=== PATIENT | female | born 1970 | race Caucasian/White ===

== ENCOUNTER 2020-11-25 14:48 | Outpatient (CLI) | payer BC, SELFPAY ==
--- NOTE | ~2020-11-25 | XR_ITS ---
EXAMINATION: XR chest 2V EXAM DATE: 11/25/2020 15:02 INDICATION: R05 - Cough,COVID 4 Wks Ago . TECHNIQUE: Frontal and lateral projections of the chest obtained and reviewed. There is no prior nicholas dy for comparison. FINDINGS: The lungs are clear. There are no pleural effusions. The cardiomediastinal silhouette is within normal limits. There is no pneumothorax suspected. The bones and soft tissues are unremarkab le. IMPRESSION: Normal chest x-ray exam. Reviewed, dictated and finalized at location B. IMPRESSION: Normal chest x-ray exam.
== END 2020-11-25 14:49 | disposition home or self-care (01) ==
LOC: ANHIMG 14:52
PROVIDERS: PCP Family Medicine; Visit Provider Family Medicine
DX: R05 Cough (principal); B94.8 Sequelae of other specified infectious and parasitic diseases
CPT/HCPCS: 71046

== ENCOUNTER → 2024-06-05 16:45 | Outpatient (CLI) | payer OTHER, SELFPAY ==
--- NOTE | ~2024-06-05 | XR_ITS ---
AP and oblique views of the bilateral ribs, and PA and lateral chest radiographs Clinical History: Pain Findings: No rib fracture is seen. Osseous alignment is anatomic. Lungs are clear, without focal cons olidation or pleural effusion. Cardiomediastinal contour is within normal limits. Probable 7 mm right renal stone. Impression: No rib fracture is seen. Clear lungs. Probable 7 mm right renal stone. Reviewed, dictated and finalized at location . Impression: No rib fracture is seen. Clear lungs. Probable 7 mm right renal stone.
--- OUTSIDE RECORDS SUMMARY | 2024-06-05 16:49 | XMS_ITS | Referral Summary ---
Author Organization [facility] Address [address] [place] [address] Care Team Providers Care Dietetic Technician Name Role Phone Jose Liriano MD Primary Care Provider [phone] Allergies Active Allergy Reactions Criticality Noted Date Comments Sulfamethoxazole-Trimethoprim Itching Low 2023 Nitrofurantoin Itching Low 04/04/2023 Penicillins Rash Medium Reaction: Rash, , Thimerosal Itching Low Reaction: itching, Medications cyanocobalamin (Vitamin B-12) 1,000 mcg tabletIndicatio ns:Prevention of Vitamin B12 Deficiency Take 5 tablets (5,000 mcg total) by mouth daily Active cholecalciferol (VITAMIN D-3) 5,000 unit capsule Take 1 capsule (5,000 Units total) by mouth daily Active Active Problems Problem Noted Date Diagnosed Date Screening for colon cancer 09/11/2019 Overview (09/11/2019): Added automatically from request for surgery [id number] Enlarged uterus 09/11/2019 Thyroid nodule 10/24/2018 Skin benign neoplasm 05/04/2016 Keratosis, senilis 05/04/2016 Skin neoplasm 05/04/2016 Social History Tobacco Use Types Packs/Day Years Used Date Smoking Tobacco: Never Smokeless Tobacco: Never Tobacco Cessation:Counseling Given: Not Answered Alcohol Use Standard Drinks/Week Comments Not Currently 0 (1 standard drink = 0.6 oz pur e alcohol) rare Humiliation, Afraid, Rape, and Kick questionnair e Answer Date Recorded Within the last year, have y ou been afraid of your partner or ex-partner? No 09/11/2019 Within the last year, have y ou been humiliated or emotionally abused in other ways by your partner or ex-partner? No Within the last year, have y ou been kicked, hit, slapped, or otherwise physically hurt by your partner or ex-partner? No 09/11/2019 Within the last year, have y ou been raped or forced to have any kind of sexual activity by your partner or ex-partner? No 09/11/2019 Social Connection and Isolat ion Panel [NHANES] Answer Date Recorded In a typical week, how many times do you talk on the phone with family, friends, or neighbors? More than three times a week 09/11/2019 How often do you get togethe r with friends or relatives? Never 09/11/2019 How often do you attend chur or restorationism services? Never 09/11/2019 Do you belong to any clubs o r organizations such as sabianism groups, unions, fraternal or athletic groups, or school groups? No 09/11/2019 How often do you attend meet ings of the clubs or organizations you belong to? Never 09/11/2019 Are you , , di vorced, , never , or living with a partner? 09/11/2019 AUDIT-C Answer Date Recorded Q1: How often do you have a drink containing alc ohol? Never 09/11/2019 Average Number of Drinks Not on file 020 Frequency of Binge Drinking Not on file 10/2019 Overall Financial Resource Strain (CARDIA) Answe r Date Recorded How hard is it for you to pa y for the very basics like food, housing, medical care, and heating? Not hard at all 09/11/2019 [facility] of Occupat ional Health - Occupational Stress Questionnaire Answer Date Recorded Do you feel stress - tense, restless, nervous, or anxious, or unable to sleep at night because your mind is troubled all the time - these days? Not at all 09/11/2019 Exercise Vital Sign Answer Date Recorde d On average, how many days pe r week do you engage in moderate to strenuous exercise (like a brisk walk)? 0 days Minutes of Exercise per Session Not on file 09/11/2019 Hunger Vital Sign Answer Date Recorded Within the past 12 months, y ou worried that your food would run out before you got the money to buy more. Never true 09/11/19 20 Within the past 12 months, t he food you bought just didn't last and you didn't have money to get more. Never true 09/11/2019 PRAPARE - Transportation Answer Date Re corded In the past 12 months, has l ack of transportation kept you from medical appointments or from getting medications? No 10/2019 In the past 12 months, has l ack of transportation kept you from meetings, work, or from getting things needed for daily living? No 09/11/2019 Personal Safety Answer Date Recorded Have you ever been in or are you currently in a harmful physical or emotional relationship or is someone making you feel afraid or unsafe? Denies 04/04/2023 Comments No Sex and Gender Information Value Date Recorded Sex Assigned at Not on file Legal Sex Female 2:53 AM JOIST SETTER Gender Identity Not on file Sexual Orientation Straight 09/09/2019 1: 23 PM CDT Last Filed Vital Signs Vital Sign Reading Time Taken Comments Blood Pressure 122/74 04/04/2023 12:00 PM JOIST SETTER Pulse 66 04/04/2023 12:00 PM JOIST SETTER Temperature 36.5 C (97.7 F) 04/04/2023 9:26 AM JOIST SETTER Respiratory Rate 18 04/04/2023 11:00 AM JOIST SETTER Oxygen Saturation 96% 04/04/2023 12:00 PM JOIST SETTER Inhaled Oxygen Concentration - - Weight 80.5 kg (177 lb 6.4 oz) 10/02/2023 1:33 P M CDT Height 171.5 cm (5' 7.5 ) 01/04/2021 4:10 PM CDT Body Mass Index 27.37 01/04/2021 4:10 PM CDT Plan of Treatment Not on file Procedures Procedure Name Priority Date/Time Associated Diagnosis Comments DIAGNOSTIC MAMMOGRAM BILATERAL W LIZETTE Schedule Routine, Read Routine (OP Routine) 01/29/2021 11:38 AM JOIST SETTER Lump or mass in breast GENITAL FLUID PAP SMEAR, THIN PREP AND HPV Routine 01/13/2016 6:00 PM JOIST SETTER from Last 3 Months or Most Recently Relevant to Health Maintenance Results * DIAGNOSTIC MAMMOGRAM BILATERAL W LIZETTE (01/29/2021 11:38 AM JOIST SETTER) Anatomical Region Laterality Modality Breast Bilateral Mammography 01/29/2021 12:2 6 PM JOIST SETTER Impressions 01/29/2021 12:26 PM JOIST SETTER BI-RADS Category 2, benign. Recommendation Annual screening mammography. Electronically signed by: Licha Shah M.D. Narrative 01/29/2021 12:26 PM JOIST SETTER Examination: Bilateral digital diagnostic mammogram . Order Date: 01/29/2021 11:30 AM History: Routine screening, patient physician felt lump at upper outer quadrant of the right breast, family history of breast cancer to sister Comparison:09/11/2019, 06/25/2018, 12/18/2017 from [facility] Technique Craniocaudal ,mediolateral oblique and mediolateral views of both breasts were obtained utilizing full field 2 D and digital breast tomosynthesis[DBT] images were obtained. CAD was utilized. Breast parenchymal composition The breasts are heterogeneously dense which may obscure small masses. Findings There is no suspicious dominant mass, clustered microcalcification or architectural distortion. There is no change since previous examination. This examination has been subjected to R2/CAD analysis. Limited ultrasound of the upper outer quadrant of the right breast Real-time examination of the right breast is performed from 9:00 to 12:00. There is dense fibroglandular breast parenchyma without any evidence of solid or a cystic mass suggestive follow-up yearly mammogram. Palpable abnormality based on clinical findings. us Helen Yancey MD IMG MAMMO PROCEDURES Final Result * Genital fluid pap smear, thin prep and HPV (01/13/2016 6:00 PM JOIST SETTER) Clinical information SEE NOTE CDR HISTORICAL RESULTS Comment:H/O LEEP LMP SEE NOTE CDR HISTORICAL RESULTS Comment:11/05/15 Previous Pap SEE NOTE CDR HISTORICAL RESULTS Comment:INFORMATION NOT PROV IDED Previous biopsy SEE NOTE CDR HISTORICAL RESULTS Comment:INFORMATION NOT PROV IDED Referral specimen source SEE NOTE CDR HISTORICAL RESULTS Comment:Information not prov ided Statement of adequacy SEE NOTE CDR HISTORICAL RESULTS Comment: Satisfactory for evaluation. Endocervical/transformation zone component present. Referral specimen, interp SEE NOTE CDR HISTORICAL RESULTS Comment:Negative for intraep ithelial lesion or malignancy. Variable comment SEE NOTE CDR HISTORICAL RESULTS Comment: This Pap test has been evaluated with computer assisted technology. Human papillomavirus RNA, High Risk E6/E7 Not Detected Not Detected CDR HISTORICAL RESULTS Comment: This test was performed using the APTIMA HPV Assay ([employer] This assay detects E6/E7 viral messenger RNA (mRNA) from 14 high-risk HPV types (16,18,31,33,35,39,45,51,52,56,58,59,66,68). Genital 01/13/2016 6:00 PM JOIST SETTER Narrative CDR HISTORICAL RESULTS - 01/20/2016 3:00 AM JOIST SETTER Test performed at [facility] [address] [address] Director: JABIER PHILIP MD us Historical Provider LAB CYTOLOGY ORDERABLES F inal Result CDR HISTORICAL RESULTS from Last 3 Months or Most Recently Relevant to Health Maintenance Insurance [facility] Care Teams Dietetic Technician Relationship Specialty Start Date End Date Jose Liriano MD [address] [address] PCP - General 06/03/16
--- OUTSIDE RECORDS SUMMARY | 2024-06-05 16:49 | XMS_ITS | Encounter Summary ---
Author Organization [facility] Address [address] [place] [address] Phone Care Team Providers Care Instrumental Musician Name Role Phone Jose Liriano MD Primary Care Provider [phone] Encounter Details Date Type Department Care Team (Late st Contact Info) Description 06/21/2017 Orders Only [facility] ProviderViridiana MD [address] [place] [address] Social History Tobacco Use Types Packs/Day Years Used Date Smoking Tobacco: Never Smokeless Tobacco: Never Alcohol Use Standard Drinks/Week Comments Yes 0 (1 standard drink = 0.6 oz pur e alcohol) Comments No Sex and Gender Information Value Date Recorded Sex Assigned at Not on file Legal Sex Female 2:53 AM ECONOMICS FACULTY MEMBER Gender Identity Not on file Sexual Orientation Straight 09/09/2019 1: 23 PM CDT documented as of this encounter Plan of Treatment Not on file documented as of this encounter Procedures Procedure Name Priority Date/Time Associated Diagnosis Comments CYTOLOGY 06/21/2017 12:00 AM CDT documented in this encounter Results * CYTOLOGY (06/21/2017 12:00 AM CDT) Narrative 06/21/2017 12:00 AM CDT Ordered by an unspecified provider. Historical Provider LAB CYTOLOGY ORDERABLES F inal Result documented in this encounter Visit Diagnoses Not on filedocumented in this encounter Care Teams Instrumental Musician Relationship Specialty Start Date End Date Jose Liriano MD [address] [address] PCP - General 06/03/16 documented as of this encounter
--- OUTSIDE RECORDS SUMMARY | 2024-06-05 16:49 | XMS_ITS | Clinical Summary ---
Author Organization [facility] Address [address] [place] [address] Care Team Providers Care Day Porter Name Role Phone Jose Liriano MD Primary Care Provider [phone] Allergies Active Allergy Reactions Criticality Noted Date [...] (09/11/2019): Added automatically from request for surgery [id number] Enlarged uterus 09/11/2019 Thyroid nodule 10/24/2018 Skin benign neoplasm 05/04/2016 Keratosis, senilis 05/04/2016 Skin neoplasm 05/04/2016 Surgical History Surgery Date Site/Laterality Comments VAGINAL DELIVERY 03/06/1998 - 03/05/1999 : VAGINAL DELIVERY 03/06/2000 - 03/05/2001 : CERVICAL BIOPSY W/ LOOP ELECTRODE EXCISION 03/06/2012 - 03/05/2013 cervical dysplasia: cervical cauterization LASIK 03/06/2004 - 03/05/2005 Medical History Medical History Date Comments Hx Other Medical ; Outc ome: 7lb(s) 3 oz Hx Other Medical ; Outc ome: 7lb(s) 6 oz Cervical dysplasia cervical dysp lasia Dvt 2002 DVT (R calf) Migraines Family History Medical History Relation Name Comments Lung cancer Father Cancer, lung; Lung cancer Mother Cancer, lung; Thyroid cancer Sister 1 Cancer, thyro id; Breast cancer Sister 2 Cancer, breast ; SM 01/14/2016 -estrogen positive, negative BRCA genes Thyroid cancer Sister 2 Colon cancer Neg Hx Deep vein thrombosis Neg Hx Ovarian cancer Neg Hx Uterine cancer Neg Hx Relation Name Status Comments Father Mother Sister 1 Sister 2 age 55 Social History Tobacco Use Types Packs/Day Years [...] 09/11/2019 How often do you attend chur ch or nondenominational services? Never 09/11/2019 Do you belong to any clubs o r organizations such as anabaptism groups, unions, fraternal or athletic groups, or [...] and heating? Not hard at all 09/11/2019 [facility] [place] of Occupat ional Health - Occupational Stress [...] on file Legal Sex Female 2:53 AM WOODWORKING CRAFTSMAN Gender Identity Not on file Sexual Orientation Straight 09/09/2019 1: 23 PM CDT Obstetrics History Para Term AB IAB SAB Ectopic Multiple Livin g Live Births 2 2 2 2 Date Outcome GA Total Labor Labor/2nd/3rd Weight Sex Type Anes PTL Saadia A1 A5 Name Clin Para Vag-S pont Living Para Vag-S pont Living Last Filed Vital Signs Vital Sign Reading Time Taken Comments Blood Pressure 122/74 04/04/2023 12:00 PM WOODWORKING CRAFTSMAN Pulse 66 04/04/2023 12:00 PM WOODWORKING CRAFTSMAN Temperature 36.5 C (97.7 F) 04/04/2023 9:26 AM WOODWORKING CRAFTSMAN Respiratory Rate 18 04/04/2023 11:00 AM WOODWORKING CRAFTSMAN Oxygen Saturation 96% 04/04/2023 12:00 PM WOODWORKING CRAFTSMAN Inhaled Oxygen Concentration - - Weight 80.5 kg (177 lb 6.4 oz) 10/02/2023 1:33 P M CDT Height 171.5 cm (5' 7.5 ) 01/04/2021 4:10 PM CDT Body Mass Index 27.37 01/04/2021 4:10 PM CDT Plan of Treatment Health Maintenance Due Date Last Done Comments Colon Cancer Screening-Colonoscopy 1968 Depression Screening 1968 Hepatitis C Screening 1968 DTaP/Tdap/Td Vaccine (1 - Tdap) 08/10/1979 Hepatitis B Screening 1986 Cervical Cancer Screening 01/12/2017 01/13/2016 Zoster Vaccine (1 of 2) 2018 Regular Well Visit/Exam 18-64 01/04/2022 01/04/2021, 09/11/2019, 06/25/2018, Additional history exists Breast Cancer Screening-Mammogram 01/29/2022 01/29/2021, 09/11/2019, 06/25/2018, Additional history exists Influenza Vaccine (#1) 2023 Pneumococcal vaccine <65 Aged Out No longer eligible based on patient's age to complete this topic Procedures Procedure Name Priority Date/Time Associated Diagnosis Comments DIAGNOSTIC MAMMOGRAM BILATERAL W LIZETTE Schedule Routine, Read Routine (OP Routine) 01/29/2021 11:38 AM WOODWORKING CRAFTSMAN Lump or mass in breast GENITAL FLUID PAP SMEAR, THIN PREP AND HPV Routine 01/13/2016 6:00 PM WOODWORKING CRAFTSMAN from Last 3 Months or Most Recently Relevant to Health Maintenance Results * DIAGNOSTIC MAMMOGRAM BILATERAL W LIZETTE (01/29/2021 11:38 AM WOODWORKING CRAFTSMAN) Anatomical Region Laterality Modality Breast Bilateral Mammography 01/29/2021 12:2 6 PM WOODWORKING CRAFTSMAN Impressions 01/29/2021 12:26 PM WOODWORKING CRAFTSMAN BI-RADS Category 2, benign. Recommendation Annual screening mammography. Electronically signed by: Licha Shah M.D. Narrative 01/29/2021 12:26 PM WOODWORKING CRAFTSMAN Examination: Bilateral digital diagnostic mammogram . Order Date: 01/29/2021 11:30 AM History: Routine screening, patient physician felt lump at upper outer quadrant of the right breast, family history of breast cancer to sister Comparison:09/11/2019, 06/25/2018, 12/18/2017 from [facility] Technique Craniocaudal ,mediolateral oblique and mediolateral views [...] thin prep and HPV (01/13/2016 6:00 PM WOODWORKING CRAFTSMAN) Clinical information SEE NOTE CDR HISTORICAL RESULTS [...] was performed using the APTIMA HPV Assay ([employer] This assay detects E6/E7 viral messenger RNA (mRNA) from 14 high-risk HPV types (16,18,31,33,35,39,45,51,52,56,58,59,66,68). Genital 01/13/2016 6:00 PM WOODWORKING CRAFTSMAN Narrative CDR HISTORICAL RESULTS - 01/20/2016 3:00 AM WOODWORKING CRAFTSMAN Test performed at [address] [address] Director: JABIER PHILIP MD us Historical Provider LAB CYTOLOGY ORDERABLES F inal Result CDR HISTORICAL RESULTS from Last 3 Months or Most Recently Relevant to Health Maintenance Insurance [facility] HMO Care Teams Day Porter Relationship Specialty Start Date End Date Jose Liriano MD [address] [address] PCP - General 06/03/16
--- OUTSIDE RECORDS SUMMARY | 2024-06-05 16:49 | XMS_ITS | Clinical Summary ---
Author Organization [facility] Address [address] [place] [id number] Care Team Providers Care Lawn Specialist Name Role Phone Unavailable Primary Care Provider Unavailabl e Social History Tobacco Use Types Packs/Day Years Used Date Smoking Tobacco: Never Assessed Comments Unknown Sex and Gender Information Value Date Recorded Sex Assigned at Not on file Legal Sex Female 7:16 PM CDT Gender Identity Not on file Sexual Orientation Not on file Plan of Treatment Health Maintenance Due Date Last Done Comments Cervical Cancer Screening Pa p Smear (Age 30 to 64) Every 3 Years 1968 Colorectal Cancer Screening Colonoscopy (10 Years) 1968 Annual Physical 08/10/1971 Hepatitis C 1986 DTaP, Tdap and Td Vaccines ( 1 - Tdap) 08/10/1987 Hepatitis B Vaccines (1 of 3 - 19+ 3-dose series) 08/10/1987 Cervical Cancer Screening Pa p with HPV Testing (Age 30 to 64) Every 5 Years 1998 Cervical Cancer Screening with HPV 1998 Mammogram Screening 2008 Zoster Vaccines (1 of 2) 2018 COVID-19 Vaccine (2023-2 5 season) 2023 Influenza Adult (#1) 2023 Meningococcal B Vaccine Aged Out No l onger eligible based on patient's age to complete this topic Meningococcal Vaccine Aged Out No lis alex eligible based on patient's age to complete this topic Pneumococcal Vaccine: Pediat rics (0 to 5 Years) and At-Risk Patients (6 to 64 Years) Aged Out No longer eligible b ased on patient's age to complete this topic RSV Immunizations Under 20 Months Aged Out No longer eligible based on patient's age to complete this topic
--- OUTSIDE RECORDS SUMMARY | 2024-06-05 16:49 | XMS_ITS | Continuity of Care Document ---
Author Organization [facility] Address [address] [employer] [address] [place] [address] Phone Care Team Providers Care Larriman Helper Name Role Phone Kendell HOFF, Gertrudis Unavailable [...] [facility] , [address], [place], [address], tel:[phone] [facility] allergy evaluation (chief complaint) Body mass index [BMI] 26.0-26.9, adultAtrophic vaginitisDrug allergyDry skin 4 Kendell Caba. [address], [place], [place], [id number]. tel:[phone] Family History Family Member Type Diagnosis Age At Onset No Information Payers Payer name Insurance type Covered constitution party ID Authoriza tion(s) No Information Social History [...] Description: 52-year-old very pleasant patient referred by [facility]. Emergency room has never had a bladder [...] penicillins, BUT HAS TAKEN AMOXICILLIN RECENTLYUA at [facility] was completely negative with the normal pH of 6.5.She has a thyroid nodule that is being followed. She takes vitamin D3 and K2. Reason For Referral Reason For Referral No Information History Of Present Illness Encounter Date Complaint History Of Prese nt Illness allergy evaluation 52-year-old v jean-claude pleasant patient referred by [facility]. Emergency room has never had a bladder [...] penicillins, BUT HAS TAKEN AMOXICILLIN RECENTLYUA at [facility] was completely negative with the normal pH [...] day of Bactrim and urinary analysis in [facility] was negative. Either the infection was treated or she had no infection at all. She admits to an extremely dry vaginal area with itching sometimes. She also admits that her CLINICAL TECHNOLOGIST had advised, hormonal replacement, has prescription for [...] Mental Status Date Cognitive Assessment Orientation - Crane ed to time, place, person, situation. Patient Care Teams Name Effective Dates (start - stop) Status Members No Information
== END ==
PROVIDERS: PCP Family Medicine; Visit Provider Family Medicine
DX: R07.89 Other chest pain (principal)
CPT/HCPCS: 71046; 71110

== ENCOUNTER 2024-06-18 08:15 | Outpatient (CLI) | payer OTHER, SELFPAY ==
--- NOTE | ~2024-06-18 | CT_ITS ---
CT Scan of the Chest without Contrast: Clinical Indication: Chest pain Technique: Contiguous sections were acquired throughout the chest without intravenous contrast. Dose reduction technique was used on this scan by utilizing automated exposure control and iterative recon struction technique. The dose-length product (DLP) was 180.25 mGy-cm. Findings: There is no evidence of any significant mediastinal, hilar or axillary lymphadenopathy. The mediastin al soft tissues appear normal. There is no evidence of pleural or pericardial effusion. The lungs are clear. No pulmonary nodules or infiltrates are noted. Images through the upper abdomen reveal no abnormalities. Impression: No significant abnormalities seen. Reviewed, dictated and finalized at location . Impression: No significant abnormalities seen.
== END 2024-06-18 08:16 | disposition home or self-care (01) ==
PROVIDERS: PCP Family Medicine; Visit Provider Family Medicine
DX: R07.89 Other chest pain (principal)
CPT/HCPCS: 71250

== ENCOUNTER → 2024-11-13 14:59 | Outpatient (CLI) | payer OTHER, SELFPAY ==
--- OUTSIDE RECORDS SUMMARY | 2023-05-01 09:30 | XMS_ITS | Continuity of Care Document ---
Author Organization [facility] Address [address] [facility] [address] [place] [address] Phone Care Team Providers Care Wood Barrel Reconditioner Name Role Phone Kendell HOFF, Gertrudis Unavailable Unavailabl e Allergies, Adverse Reactions, Alerts Substance Reaction Status Criticality Penicillins Active No Information trimethoprim Active No Information sulfamethoxazole Active No Informat ion Procedures Procedure Date OFFICE/OUTPATIENT VISIT NEW Advance Directives Directive Yes / No Effective Date File Name No Information Encounters Encounter Description Practice Location Reason(s) For Visit Diagnoses Date Provider Providers Copied on Encounter OFFICE/OUTPA TIENT VISIT NEW [facility] , [address], [place], [address], tel:[phone] [facility] allergy evaluation (chief complaint) Body mass index [BMI] 26.0-26.9, adultAtrophic vaginitisDrug allergyDry skin 4 Kendell Caba. [address], [place], [place], [id number]. tel:[phone] Family History Family Member Type Diagnosis Age At Onset No Information Payers Payer name Insurance type Covered republican ID Authoriza tion(s) No Information Social History Type Description Quantity Date Captured Comments Alcohol Use Details Unknown Caffeine Use Details Unknown Tobacco Use Status Current non-smoker Smoking Status Never smoker Non-Smoking Tobacco Use Details : No Details Available : No Details Available Sex Female Vital Signs Date / Time: Height Weight BMI Pulse Rate Blood Pressure Temperature Respiratory Rate Body Surface Area Head Circumference Head Circ. Percentile Wt./Fredrick. Percentile BMI percentile Pulse Ox Inhaled Ox 2:33 PM 68.00 in 79.379 kg (175.00 lbs) 26.6 1 kg/m eter (2) 91 /min 133/93 mm[Hg] 98.20 F 99 % Chief Complaint And Reason For Visit From encounter dated '05/01/2023 14:30'. allergy evaluation (chief complaint). Description: 52-year-old very pleasant patient referred by [facility]. Emergency room has never had a bladder infection in her life till recently. She felta lot if dysuria was macrobid finished a five day course, still did not feel better called back andwas given Bactrim. After the very first dose, she started, itching felt chest heaviness had loose stools, and felt like she had flu like symptoms with chills. Continued to have symptoms of. Dysuria but no supra pubic cramp.No fever or chills.She was treated in the emergency room with Benadryl, Pepcid, fluids, and steroids. She was sent home on prednisone which she did not take. She felt she had he artburn vision changes.Patient had hives for four weeks and has finally become better. Faint redness on her neck.She does not like to take medication and would prefer natural medication. She gets hotflashes. She has extreme dry vaginal area attain menopause one year ago she was told by the OB to try hormones which she did not want to do and has prescription for topical vaginal hormones, which she has not yet started.She states 30 years ago, she developed a rash to penicillins, BUT HAS TAKEN AMOXICILLIN RECENTLYUA at [facility] was completely negative with the normal pH of 6.5.She has a thyroid nodule that is being followed. She takes vitamin D3 and K2. Reason For Referral Reason For Referral No Information History Of Present Illness Encounter Date Complaint History Of Prese nt Illness allergy evaluation 52-year-old v jean-claude pleasant patient referred by [facility]. Emergency room has never had a bladder infection in her life till recently. She felt a lot if dysuria was macrobid finished a five day course, still did not feel better called back and was given Bactrim. After the very first dose, she started, itching felt chest heaviness had loose stools, and felt like she had flu like symptoms with chills. Continued to have symptoms of. Dysuria but no supra pubic cramp.No fever or chills.She was treated in the emergency room with Benadryl, Pepcid, fluids, and steroids. She was sent home on prednisone which she did not take. She felt she had heartburn vision changes.Patient had hives for four weeks and has finally become better. Faint redness on her neck.She does not like to take medication and would prefer natural medication. She gets hot flashes. She has extreme dry vaginal area attain menopause one year ago she was told by the OB to try hormones which she did not want to do and has prescription for topical vaginal hormones, which she has not yet started.She states 30 years ago, she developed a rash to penicillins, BUT HAS TAKEN AMOXICILLIN RECENTLYUA at [facility] was completely negative with the normal pH of 6.5.She has a thyroid nodule that is being followed. She takes vitamin D3 and K2. Functional Status Date Functional Assessmen t No Information Instructions Date Instruction Additional Infor mation skin care includes- non drying soap, no body wash, a daily good mositurizer, keeping nails short, luke warm showers and bath , control itching . Related to Dry skin Giving encouragement to exercise Related to Body mass index [BMI] 26.0-26.9, adult Assessments Type Assessment Date assessment Body mass index [BMI] 26.0-26.9, adult assessment Atrophic vaginitis assessment Drug allergy impression Worried about this n ew onset dysuria-Which she calls a bladder infection. She has finished a whole course of Macrobid and one day of Bactrim and urinary analysis in [facility] was negative. Either the infection was treated or she had no infection at all. She admits to an extremely dry vaginal area with itching sometimes. She also admits that her TERMINOLOGIST had advised, hormonal replacement, has prescription for topical hormone which she has not used. I discussed in detail. Atrophic vaginitis-which is extremely common postmenopausal. She was advised to drink a lot of water. She can use coconut oil in her vaginal area, but was asked to reconsider vaginal hormonal therapy, reassuring her that she was not ingesting anything. impression She developed itchin g chest heaviness flew like symptoms one day after taking Bactrim, but had finished the whole day course of Macrobid. It is possible that she is allergic to Bactrim/sulfa and should stay away from it for now. In future skin test and oral challenge can always be done. Patient states she's allergic to penicillin but has tolerated amoxicillin recently. Once she is better, I am happy to do a penicillin skin test and an oral challenge , if she or her physician are concerned. assessment Dry skin impression Skin is dry to rony casas. Skin can change with changes hormonal changes and hot flashes. Her thyroid functions are normal. She was asked not to overdo fat, soluble vitamins like D and K and instead of taking it every day she can take it maybe every third day. Advised to drink plenty of water and always moisturize the skin. Mental Status Date Cognitive Assessment Orientation - [place] ed to time, place, person, situation. Patient Care Teams Name Effective Dates (start - stop) Status Members No Information
--- NOTE | ~2024-11-13 | XR_ITS ---
EXAMINATION: XR hand RT min 3V DATE: 11/13/2024 15:15 INDICATION: Injury. Pain to fifth digit TECHNIQUE: 3 images of the right hand were obtained. COMPARISON: None. FINDINGS: [ Mild joint space narrowing in the PIP and DIP joints and interphalangeal joint of the thumb. Mild joint space narrowing in the first carpometacarpal joint and first metacarpophalangeal joint. [ No radiographic evidence for an acute fracture or dislocation.] [ No radiopaque foreign body.] [ No sclerotic or destructive bone lesions.] Soft tissue swelling about the right hand. IMPRESSION: 1. [ No acute bony abnormality identified.] If symptoms persist or worsen consider a short-term follow-up study or additional imaging for further assessment. Reviewed, dictated and finalized at location Q. IMPRESSION: 1. [ No acute bony abnormality identified.] If symptoms persist or worsen consider a short-term follow-up study or addition al imaging for further assessment.
--- OUTSIDE RECORDS SUMMARY | 2024-11-13 15:28 | XMS_ITS | Encounter Summary ---
Author Organization [facility] Address [address] [place] [address] Phone Care Team Providers Care Nursing Home Aide Name Role Phone Jose Liriano MD Primary Care Provider [phone] Encounter Details Date Type Department Care Team (Late st Contact Info) Description 06/21/2017 Orders Only [facility] ProviderViridiana MD [address] [place] [address] Social History Tobacco Use Types Packs/Day Years Used Date Smoking Tobacco: Never Smokeless Tobacco: Never Alcohol Use Standard Drinks/Week Comments Yes 0 (1 standard drink = 0.6 oz pur e alcohol) Comments No Sex and Gender Information Value Date Recorded Sex Assigned at Not on file Legal Sex Female 2:53 AM SHEET LAYER Gender Identity Not on file Sexual Orientation [...] on filedocumented in this encounter Care Teams Nursing Home Aide Relationship Specialty Start Date End Date Jose Liriano MD [address] [address] PCP - General 06/03/16 documented as of this encounter
--- OUTSIDE RECORDS SUMMARY | 2024-11-13 15:28 | XMS_ITS | Clinical Summary ---
Author Organization [facility] Address [address] [place] [address] Care Team Providers Care Branch Examiner Name Role Phone Unavailable Primary Care Provider [...] Screening with HPV 1998 Mammogram Screening 2008 Pneumococcal Vaccine: 50+ Ye ars (1 of 1 - PCV) 2018 Zoster Vaccines (1 of 2) 2018 COVID-19 Vaccine (2023-2 5 season) 2024 Meningococcal B Vaccine Aged Out No l onger eligible based on patient's age to complete this topic Meningococcal Vaccine Aged Out No lis alex eligible based on patient's age to complete this topic RSV Immunizations Under 20 Months Aged Out No longer eligible based on patient's age to complete this topic
--- OUTSIDE RECORDS SUMMARY | 2024-11-13 15:28 | XMS_ITS | Clinical Summary ---
Author Organization [facility] Address [address] [place] [address] Care Team Providers Care Service Coordinator Elderly Facility Name Role Phone Jose Liriano MD Primary Care Provider [phone] Allergies Active Allergy Reactions Criticality Noted Date [...] (09/11/2019): Added automatically from request for surgery [id number] Enlarged uterus 09/11/2019 Thyroid nodule 10/24/2018 Skin benign neoplasm 05/04/2016 Keratosis, senilis 05/04/2016 Skin neoplasm 05/04/2016 Encounters Date Type Department Care Team Description 10/25/2024 Orders Only [facility] Medicine Otolaryngology Head-Neck Division [facility] Floor [address] [place] [address] Kasey Mullen PA Thyroid nodule (Primary Dx) 10/07/2024 12:15 PM CDT - 10/07/2024 11:59 PM CDT Hospital Encounter [facility] ([facility]) [address] [place], [place] [id number] Thyroid nodule Discharge Disposition: Discharge to home or self care from Last 3 Months Surgical History Surgery Date Site/Laterality Comments VAGINAL [...] or ex-partner? No 09/11/2019 Social Connection and Isolation Panel Answer Date Recorded In a typical week, how many times do you talk on the phone with family, friends, or neighbors? More than three times a week 09/11/2019 How often do you get togethe r with friends or relatives? Never 09/11/2019 How often do you attend chur ch or confucianist services? Never 09/11/2019 Do you belong to any clubs o r organizations such as orthodox groups, unions, fraternal or athletic groups, or [...] and heating? Not hard at all 09/11/2019 [facility] - Occupational Stress [...] on file Legal Sex Female 2:53 AM PRECISION GRINDER EXTERNAL Gender Identity Not on file Sexual Orientation [...] Comments Blood Pressure 122/74 04/04/2023 12:00 PM PRECISION GRINDER EXTERNAL Pulse 66 04/04/2023 12:00 PM PRECISION GRINDER EXTERNAL Temperature 36.5 C (97.7 F) 04/04/2023 9:26 AM PRECISION GRINDER EXTERNAL Respiratory Rate 18 04/04/2023 11:00 AM PRECISION GRINDER EXTERNAL Oxygen Saturation 96% 04/04/2023 12:00 PM PRECISION GRINDER EXTERNAL Inhaled Oxygen Concentration - - Weight 80.5 kg (177 lb 6.4 oz) 10/02/2023 1:33 P M CDT Height 171.5 cm (5' 7.5) 01/04/2021 4:10 PM CDT Body Mass Index [...] 06/25/2018, Additional history exists Influenza Vaccine (#1) 2024 Pneumococcal vaccine <65 Aged Out No longer eligible based on patient's age to complete this topic Procedures Procedure Name Priority Date/Time Associated Diagnosis Comments US THYROID Schedule Routine, Read Routine (OP Routine) 10/07/2024 1:33 PM CDT Thyroid nodule DIAGNOSTIC MAMMOGRAM BILATERAL W LIZETTE Schedule Routine, Read Routine (OP Routine) 01/29/2021 11:38 AM PRECISION GRINDER EXTERNAL Lump or mass in breast GENITAL FLUID PAP SMEAR, THIN PREP AND HPV Routine 01/13/2016 6:00 PM PRECISION GRINDER EXTERNAL from Last 3 Months or Most Recently Relevant to Health Maintenance Results * US Thyroid (10/07/2024 1:33 PM CDT) Anatomical Region Laterality Modality Head and Neck N/A Ultrasound 10/07/2024 1:55 PM CDT Impressions 10/07/2024 2:58 PM CDT 1. Again seen is the subcentimeter nodule with high-risk features, unchanged in appearance. Recommend biopsy or follow-up imaging based on clinical preference. ACR TI-RADS Recommendations FNA should only be recommended on a maximum of 2 nodules. A recommendation for follow-up should only be provided for a maximum of 4 nodules. TR5 (>=7 points) (risk of malignancy > 20%) >=1 cm: FNA 0.5-0.9 cm: follow-up US every year for 5 years <0.5 cm: no further evaluation TR4 (4-6 points) (risk of malignancy 5-20%) >=1.5 cm: FNA 1-1.4 cm: follow-up US in 1, 2, 3, and 5 years <1.0 cm: no further evaluation TR3 (3 points) (risk of malignancy 2-5%) >=2.5 cm: FNA 1.5-2.4 cm: follow-up US in 1, 3, and 5 years <1.5 cm: no further evaluation TR2 (2 points) and TR1 (0 points) (risk of malignancy < 2%) No FNA or follow-up US Dictated by: Shahab Mcbride M.D. The radiology attending physician has personally reviewed this study, and had reviewed and/or edited this written report and agrees with it. Electronically signed by: Kirill Edwards M.D. Narrative 10/07/2024 2:58 PM CDT EXAMINATION: THYROID SONOGRAM HISTORY: 54-year-old female with thyroid nodule Prior Biopsy: No Patient Risk Factors: None Prior Ultrasound: Ultrasound dated 10/02/2003. FINDINGS: The thyroid is normal in size. Size right lobe: 5.6 cm craniocaudal, 2.0 cm transverse, 1.3 cm AP. Size left lobe: 5.5 cm craniocaudal, 1.5 cm transverse, 1.6 cm AP. Size isthmus: 0.4 cm AP. Estimated total number of nodules >/= 1 cm: 0 Number of spongiform nodules >/= 2 cm not described below (TR1): 0 Number of mixed cystic and solid nodules >/= 1.5 cm not described below (TR2): 0 Nodule 1: Location: Left lower . Size: 0.6 cm craniocaudal x 0.5 cm transverse x 0.6 cm AP (previously 0.6 cm craniocaudal x 0.5 cm transverse x 0.5 cm AP) Maximum Size: 0.6 cm Composition: Solid/almost completely solid (2) Echogenicity: Hypoechoic (2) Shape: Not taller than wide (0) Margins: Smooth (0) Echogenic foci: Punctate echogenic foci (3) Additional Echogenic foci 1: Macrocalcifications (1) Additional Echogenic foci 2: None (0) ACR TI-RADS total points: 8 ACR TI-RADS risk category: TR5 (7 or more points) Follow-up details: Prior biopsy: No Significant change in size (>/= 20% in two dimensions and minimal increase of 2 mm): No Change in features: No Change in ACR TI-RADS risk category: No ACR TI-RADS recommendation: Follow-up US in 1 year Procedure Note Kirill Edwards MD - 10/07/2024 EXAMINATION: THYROID SONOGRAM HISTORY: 54-year-old female with thyroid nodule Prior Biopsy: No Patient Risk Factors: None Prior Ultrasound: Ultrasound dated 10/02/2003. FINDINGS: The thyroid is normal in size. Size right lobe: 5.6 cm craniocaudal, 2.0 cm transverse, 1.3 cm AP. Size left lobe: 5.5 cm craniocaudal, 1.5 cm transverse, 1.6 cm AP. Size isthmus: 0.4 cm AP. Estimated total number of nodules >/= 1 cm: 0 Number of spongiform nodules >/= 2 cm not described below (TR1): 0 Number of mixed cystic and solid nodules >/= 1.5 cm not described below (TR2): 0 Nodule 1: Location: Left lower . Size: 0.6 cm craniocaudal x 0.5 cm transverse x 0.6 cm AP (previously 0.6 cm craniocaudal x 0.5 cm transverse x 0.5 cm AP) Maximum Size: 0.6 cm Composition: Solid/almost completely solid (2) Echogenicity: Hypoechoic (2) Shape: Not taller than wide (0) Margins: Smooth (0) Echogenic foci: Punctate echogenic foci (3) Additional Echogenic foci 1: Macrocalcifications (1) Additional Echogenic foci 2: None (0) ACR TI-RADS total points: 8 ACR TI-RADS risk category: TR5 (7 or more points) Follow-up details: Prior biopsy: No Significant change in size (>/= 20% in two dimensions and minimal increase of 2 mm): No Change in features: No Change in ACR TI-RADS risk category: No ACR TI-RADS recommendation: Follow-up US in 1 year IMPRESSION: 1. Again seen is the subcentimeter nodule with high-risk features, unchanged in appearance. Recommend biopsy or follow-up imaging based on clinical preference. ACR TI-RADS Recommendations FNA should only be recommended on a maximum of 2 nodules. A recommendation for follow-up should only be provided for a maximum of 4 nodules. TR5 (>=7 points) (risk of malignancy > 20%) >=1 cm: FNA 0.5-0.9 cm: follow-up US every year for 5 years <0.5 cm: no further evaluation TR4 (4-6 points) (risk of malignancy 5-20%) >=1.5 cm: FNA 1-1.4 cm: follow-up US in 1, 2, 3, and 5 years <1.0 cm: no further evaluation TR3 (3 points) (risk of malignancy 2-5%) >=2.5 cm: FNA 1.5-2.4 cm: follow-up US in 1, 3, and 5 years <1.5 cm: no further evaluation TR2 (2 points) and TR1 (0 points) (risk of malignancy < 2%) No FNA or follow-up US Dictated by: Shahab Mcbride M.D. The radiology attending physician has personally reviewed this study, and had reviewed and/or edited this written report and agrees with it. Electronically signed by: Kirill Edwards M.D. us Kasey BHANDARI IMG US PROCEDURES Final Result * DIAGNOSTIC MAMMOGRAM BILATERAL W LIZETTE (01/29/2021 11:38 AM PRECISION GRINDER EXTERNAL) Anatomical Region Laterality Modality Breast Bilateral Mammography 01/29/2021 12:2 6 PM PRECISION GRINDER EXTERNAL Impressions 01/29/2021 12:26 PM PRECISION GRINDER EXTERNAL BI-RADS Category 2, benign. Recommendation Annual screening mammography. Electronically signed by: Licha Shah M.D. Narrative 01/29/2021 12:26 PM PRECISION GRINDER EXTERNAL Examination: Bilateral digital diagnostic mammogram . Order Date: 01/29/2021 11:30 AM History: Routine screening, patient physician felt lump at upper outer quadrant of the right breast, family history of breast cancer to sister Comparison:09/11/2019, 06/25/2018, 12/18/2017 from [facility] Technique Craniocaudal ,mediolateral oblique and mediolateral views [...] mammogram. Palpable abnormality based on clinical findings. Helen Yancey MD IMG MAMMO PROCEDURES Final Result * Genital fluid pap smear, thin prep and HPV (01/13/2016 6:00 PM PRECISION GRINDER EXTERNAL) Clinical information SEE NOTE CDR HISTORICAL RESULTS [...] was performed using the APTIMA HPV Assay ([employer] This assay detects E6/E7 viral messenger RNA (mRNA) from 14 high-risk HPV types (16,18,31,33,35,39,45,51,52,56,58,59,66,68). Genital 01/13/2016 6:00 PM PRECISION GRINDER EXTERNAL Narrative CDR HISTORICAL RESULTS - 01/20/2016 3:00 AM PRECISION GRINDER EXTERNAL Test performed at [address] [address] Director: JABIER PHILIP MD us Historical Provider LAB CYTOLOGY ORDERABLES F inal Result CDR HISTORICAL RESULTS from Last 3 Months or Most Recently Relevant to Health Maintenance Insurance [facility] Care Teams Service Coordinator Elderly Facility Relationship Specialty Start Date End Date Jose Liriano MD [address] [address] PCP - General 06/03/16
== END ==
PROVIDERS: PCP Family Medicine; Visit Provider Family Medicine
DX: M79.641 Pain in right hand (principal)
CPT/HCPCS: 73130